=== PATIENT | male | born 1995 | race Caucasian/White ===

== ENCOUNTER 2021-05-14 12:51 | Emergency (ER) | payer OTHER ==
[2021-05-14 13:14] VITALS: BP 159/100; PULSE 84; RESP 18; TEMP 99
--- NOTE | 2021-05-14 15:05 | ED ---
General Adult HPI - General Chief complaint: ENT Stated complaint: ENT Time Seen by Provider: 05/14/21 13:35 Source: patient Mode of arrival: ambulatory - History of Present Illness Initial comments: This 26-year-old male presents to the emergency department with episodic bleedin g from right tonsil that began Wednesday. Patient states he was seen last week with strep throat and was given amoxicillin, he states this all cleared up by this past weekend. However, on Wednesday afternoon he felt something on the right side of his throat looked and saw something on his tonsil so he went to [facility], [place]. Patient states they didn't do anything there and diagnosed him with something on his tonsil but cannot remember what, however he knows it was not tonsillar abscess. Patient states on Wednesday whatever was on his tonsil popped and drained some blood. Patient states since Wednesday his tonsil formed a small scab over top of whatever popped and has had episodic bleeding when he pulls a scab off. Patient states he still taking amoxicillin for his strep throat. Patient denies any fevers, sore throat, trouble swallowing, or trouble breathing. She denies any chest pain, shortness of breath, abdominal pain, nausea, vomiting, headache, lightheadedness, dizziness, change in bowel or bladder, change in appetite. - Related Data Home Medications Medication Instructions Recorded Confirmed Amoxicillin 500 mg PO Q12H 05/14/21 05/14/21 Previous Rx's Medication Instructions Recorded Amoxic-Pot Clav 875-125Mg 1 tab PO Q12HR #20 tab 05/14/21 [Augmentin 875-125] Allergies Allergy/AdvReac Type Severity Reaction Status Date / Time No Known Allergies Allergy Verified 05/14/21 14:16 Review of Systems ROS Statement: Those systems with pertinent positive or pertinent negative responses have been documented in the HPI. ROS Other: All systems not noted in ROS Statement are negative. Past Medical History Past Medical History: No Reported History History of Any Multi-Drug Resistant Organisms: None Reported Past Surgical History: No Surgical Hx Reported Past Psychological History: No Psychological Hx Reported Smoking Status: Current every day smoker Past Alcohol Use History: Occasional Past Drug Use History: None Reported General Exam General appearance: alert, in no apparent distress Head exam: Present: atraumatic, normocephalic, normal inspection Eye exam: Present: normal appearance, PERRL, EOMI. Absent: scleral icterus, conjunctival injection, periorbital swelling ENT exam: Present: normal exam, mucous membranes moist. Absent: normal oropharynx (Patient was small <.05 scab overlying anterior tonsil. When pulled off, small amount of bleeding did ooze from the site. No clots or pus present. No abscess visualized. Uvula midline. No tonsillar exudates or erythema) Neck exam: Present: normal inspection, full ROM. Absent: tenderness, meningismus, lymphadenopathy, thyromegaly Respiratory exam: Present: normal lung sounds bilaterally. Absent: respiratory distress, wheezes, rales, rhonchi, stridor Cardiovascular Exam: Present: regular rate, normal rhythm, normal heart sounds. Absent: systolic murmur, diastolic murmur, rubs, gallop, clicks GI/Abdominal exam: Present: soft, normal bowel sounds. Absent: distended, tenderness, guarding, rebound, rigid Extremities exam: Present: normal inspection, full ROM, normal capillary refill. Absent: tenderness, pedal edema, joint swelling, calf tenderness Back exam: Present: normal inspection. Absent: CVA tenderness (R), CVA tenderness (L), paraspinal tenderness, vertebral tenderness Neurological exam: Present: alert, oriented X3, CN II-XII intact Psychiatric exam: Present: normal affect, normal mood Skin exam: Present: warm, dry, intact, normal color. Absent: rash Course Vital Signs 05/14/21 13:10 Temperature 99 F Pulse Rate 84 Respiratory 18 Rate Blood Pressure 159/100 O2 Sat by Pulse 99 Oximetry Medical Decision Making - Medical Decision Making This 26-year-old male presents emergency Department with right tonsillar episodic bleeding 2 days. Labs the toe 0.5 that blood cells. Hemoglobin 15.5 CT soft tissue of neck with contrast impression: Enlarged heterogenous nasopharyngeal tonsils suggestive of acute tonsillitis. No definite abscess formation or marginally enhance caution however developing abscess cannot be excluded. Large palatine tonsils. Suspected left retropharyngeal lymph node with prominent bilateral cervical lymph nodes, possibly reactive. Follow-up computed tomography scan in 2-3 months can be considered for reassessment. Hemostasis of right tonsil was obtained on its own after having mild bleeding for 1-2 mins of dripping. Patient instructed to follow up with his primary care provider next 1-2 days. ENT contact information was given to patient and patient instructed to follow up with them in next 1-2 days. Strict return precautions were discussed and patient verbally agreed to return to the emergency department if bleeding begins, he experiences trouble breathing/swallowing, pus begins to come from site, fever occurs, or any new, worsening or concerning symptoms arise. Patient verbally agreed to plan and stated he'll call ENT tomorrow morning. Patient sent home in stable condition. Case discussed with my attending, . - Lab Data Result diagrams: 05/14/21 14:48 05/14/21 14:48 Lab Results 05/14/21 05/14/21 Range/Units 14:48 14:48 WBC 12.5 H (3.8-10.6) k/uL RBC 5.20 (4.30-5.90) m/uL Hgb 15.5 (13.0-17.5) gm/dL Hct 45.3 (39.0-53.0) % MCV 87.2 (80.0-100.0) fL MCH 29.9 (25.0-35.0) pg MCHC 34.2 (31.0-37.0) g/dL RDW 13.0 (11.5-15.5) % Plt Count 454 H (150-450) k/uL MPV 8.2 Neutrophils % 78 % Lymphocytes % 17 % Monocytes % 3 % Eosinophils % 0 % Basophils % 0 % Neutrophils # 9.8 H (1.3-7.7) k/uL Lymphocytes # 2.1 (1.0-4.8) k/uL Monocytes # 0.4 (0-1.0) k/uL Eosinophils # 0.0 (0-0.7) k/uL Basophils # 0.0 (0-0.2) k/uL Sodium 136 L (137-145) mmol/L Potassium 3.8 (3.5-5.1) mmol/L Chloride 103 (98-107) mmol/L Carbon Dioxide 23 (22-30) mmol/L Anion Gap 10 mmol/L BUN 10 (9-20) mg/dL Creatinine 0.87 (0.66-1.25) mg/dL Est GFR (CKD-EPI)AfAm >90 (>60 ml/min/1.73 sqM) Est GFR (CKD-EPI)NonAf >90 (>60 ml/min/1.73 sqM) Glucose 101 H (74-99) mg/dL Calcium 9.3 (8.4-10.2) mg/dL Total Bilirubin 0.6 (0.2-1.3) mg/dL AST 36 (17-59) U/L ALT 71 H (4-49) U/L Alkaline Phosphatase 95 (38-126) U/L Total Protein 8.0 (6.3-8.2) g/dL Albumin 4.3 (3.5-5.0) g/dL - Radiology Data Radiology results: report reviewed, image reviewed Disposition Clinical Impression: Tonsillitis Disposition: HOME SELF-CARE Condition: Stable Instructions (If sedation given, give patient instructions): Tonsillitis (ED) Additional Instructions: Please follow up with your primary care provider next 1-2 days. Follow-up with ears nose and throat if no improvement. Take medication as directed and stop her amoxicillin that has been prescribed. Prescriptions: Amoxic-Pot Clav 875-125Mg [Augmentin 875-125] 1 tab PO Q12HR #20 tab Is patient prescribed a controlled substance at d/c from ED?: No Referrals: None,Stated [Primary Care Provider] - 1-2 days Reese Velazquez [STAFF PHYSICIAN] - 1-2 days Fermín Kraft MD [STAFF PHYSICIAN] - 1-2 days Time of Disposition: 16:29
[2021-05-14 15:15] LABS: ALT 71 U/L (4-49); AST 36 U/L (17-59); African American GFR (CKD) >90 (>60 ml/min/1.73 sqM); Albumin 4.3 g/dL (3.5-5.0); Alkaline Phosphatase 95 U/L (38-126); Anion Gap 10 mmol/L; Blood Urea Nitrogen 10 mg/dL (9-20); Calcium 9.3 mg/dL (8.4-10.2); Carbon Dioxide 23 mmol/L (22-30); Chloride 103 mmol/L (98-107); Glucose 101 mg/dL (74-99); Non-African American GFR(CKD) >90 (>60 ml/min/1.73 sqM); Potassium 3.8 mmol/L (3.5-5.1); Sodium 136 mmol/L (137-145); Total Bilirubin 0.6 mg/dL (0.2-1.3)
[2021-05-14 15:33] LABS: Basophils % (A) 0 %; Eosinophils % (A) 0 %; HCT 45.3 % (39.0-53.0); HGB 15.5 gm/dL (13.0-17.5); Lymphocytes # (A) 2.1 k/uL (1.0-4.8); Lymphocytes % (A) 17 %; MCH 29.9 pg (25.0-35.0); MCHC 34.2 g/dL (31.0-37.0); MCV 87.2 fL (80.0-100.0); Mean Platelet Volume 8.2; Monocytes # (A) 0.4 k/uL (0-1.0); Monocytes % (A) 3 %; Neutrophils # (A) 9.8 k/uL (1.3-7.7); Neutrophils % (A) 78 %; Platelet Count 454 k/uL (150-450); WBC 12.5 k/uL (3.8-10.6)
--- NOTE | 2021-05-14 15:44 | CT ---
EXAMINATION TYPE: CT soft tissue neck w con DATE OF EXAM: 05/14/2021 3:15 PM COMPARISON: None available HISTORY: Bleeding back of throat, rule out tonsilar abscess CT DLP: 488.2 mGycm Automated exposure control for dose reduction was used. CONTRAST: CT scan of the neck is performed following with IV Contrast, patient injected with 100 mL of Isovue 3 00. Axial images are obtained, coronal and sagittal reformatted images are reviewed. FINDINGS: Markedly enlarged nasopharyngeal tonsils demonstrating tiny calcification and heterogeneous enhanceme nt. Underlying acute tonsillitis cannot be excluded. Prominent bilateral palatine tonsils. No definit e nasopharyngeal or palatine tonsillar abscess formation or marginally enhancing collection however a developing abscess mainly in the nasopharyngeal tonsils cannot be excluded. Unremarkable lingual tonsils. Well-defined oval-shaped soft tissue lesion is seen at the left posteri or aspect of the hypopharynx measuring 7 x 12 mm which could represent a retropharyngeal lymph node. Unremarkable hypopharynx, larynx and visualized portion of the trachea and esophagus. Unremarkable ep iglottis. Unremarkable thyroid gland. Symmetrical unremarkable parotid and submandibular salivary glands. Scattered enlarged bilateral uppe r cervical lymph nodes measuring up to 15 mm in the right level 2 group and 12 mm in the left level 2 group. Prominent left supraclavicular lymph node measuring up to 8mm. This is probably reactive. Pat ent major neck vessels. No aggressive bone lesion. IMPRESSION: Enlarged heterogeneous nasopharyngeal tonsils suggestive of acute tonsillitis. No definite abscess fo rmation or marginally enhancing collection however a developing abscess cannot be excluded. Enlarged palatine tonsils, please correlate clinically. Suspected left retropharyngeal lymph node with prominent bilateral cervical lymph nodes as described above, possibly reactive. Follow-up CT scan in 2-3 months can be considered for reassessment. Other i ncidental findings as described above.
== END 2021-05-14 16:44 | disposition home or self-care (01) ==
LOC: EC 12:51
DX: J03.90 Acute tonsillitis, unspecified (principal); F17.200 Nicotine dependence, unspecified, uncomplicated
CPT/HCPCS: 99284 ×2; 36415; 80053; 85025; 70491; Q9967